=== PATIENT | male | born 1980 | race American Indian/Alaskan Native ===

== ENCOUNTER 2021-07-02 19:45 | Emergency (ER) | payer SELFPAY ==
[2021-07-02 19:54] VITALS: BP 115/71
--- NOTE | 2021-07-02 20:08 | Emergency Department Report ---
- General Chief Complaint: Upper Respiratory Infection Stated Complaint: COVID SYMPTOMS Time Seen by Provider: 07/02/21 19:59 Source: patient Mode of arrival: Ambulatory Limitations: No Limitations - History of Present Illness Initial Comments: Patient is a 40-year-old male presents emergency room with complaints of what he believes to be Covid-like symptoms that began 3 days ago. He has associated fatigue, generalized weakness, chills, sweats, mild dry cough, diarrhea. he reports he has decreased smell and taste. He denies any chest pain, vomiting, shortness of breath, sore throat, ear pain. No past medical history. No allergies to medications. He has not received COVID-19 testing. He has not been vaccinated for COVID-19. ED Review of Systems ROS: Stated complaint: COVID SYMPTOMS Other details as noted in HPI Comment: All other systems reviewed and negative ED Past Medical Hx - Past Medical History Previous Medical History?: No - Surgical History Past Surgical History?: No ED Physical Exam - General Limitations: No Limitations General appearance: alert, in no apparent distress - Head Head exam: Present: atraumatic, normocephalic - Eye Eye exam: Present: normal appearance - ENT ENT exam: Present: mucous membranes moist - Respiratory Respiratory exam: Present: normal lung sounds bilaterally. Absent: respiratory distress, wheezes, rales, rhonchi, stridor, chest wall tenderness, accessory muscle use, decreased breath sounds, prolonged expiratory - Cardiovascular Cardiovascular Exam: Present: regular rate, normal rhythm, normal heart sounds. Absent: systolic murmur, diastolic murmur, rubs, gallop - Neurological Exam Neurological exam: Present: alert, oriented X3 - Psychiatric Psychiatric exam: Present: normal affect, normal mood - Skin Skin exam: Present: warm, dry, intact ED Course Vital Signs 07/02/21 07/02/21 19:51 21:02 Temperature 98.2 F Pulse Rate 75 74 Respiratory 18 14 Rate Blood Pressure 115/71 O2 Sat by Pulse 98 100 Oximetry ED Medical Decision Making - Medical Decision Making Patient is a 40-year-old male presents emergency room with complaints of what he believes to be Covid-like symptoms that began 3 days ago. He has associated fatigue, generalized weakness, chills, sweats, mild dry cough, diarrhea. he reports he has decreased smell and taste. He denies any chest pain, vomiting, shortness of breath, sore throat, ear pain. No past medical history. No allergies to medications. He has not received COVID-19 testing. He has not been vaccinated for COVID-19. Vitals are normal. Breath sounds are clear bilaterally, no wheezing, no rales, no rhonchi. Patient has no fever, no tachycardia, no hypoxia. No clinical signs of bacterial pneumonia or bacterial bronchitis at this time. Discussed supportive care and symptomatic treatment with patient. Discussed return precautions. Discussed the importance of outpatient primary care follow-up. Advised patient May take Mucinex or TheraFlu as needed for cough cold symptoms. May take Tylenol as needed for any pain. Increase your fluid intake. Follow-up with your primary care doctor. Return to emergency room for any new or worsening symptoms. Recommend outpatient COVID-19 testing and if positive will need to self quarantine for 10 days from onset of symptoms. Critical care attestation.: If time is entered above; I have spent that time in minutes in the direct care of this critically ill patient, excluding procedure time. ED Disposition Clinical Impression: Upper respiratory infection Qualifiers: URI type: unspecified URI Qualified Code(s): J06.9 - Acute upper respiratory infection, unspecified Disposition: 01 HOME / SELF CARE / HOMELESS Is pt being admited?: No Does the pt Need Aspirin: No Condition: Stable Instructions: Viral Respiratory Infection Additional Instructions: May take Mucinex or TheraFlu as needed for cough cold symptoms. May take Tylenol as needed for any pain. Increase your fluid intake. Follow-up with your primary care doctor. Return to emergency room for any new or worsening symptoms. Recommend outpatient COVID-19 testing and if positive will need to self quarantine for 10 days from onset of symptoms. Referrals: JAYANT XIAO MD [Staff Physician] - 3-5 Days [facility] [Provider Group] - 3-5 Days Forms: Work/School Release Form(ED) Time of Disposition: 20:07 Print Language: IRISH
== END 2021-07-02 20:29 | disposition home or self-care (01) ==
LOC: ED 19:45
DX: J06.9 Acute upper respiratory infection, unspecified (principal); R68.83 Chills (without fever); R61 Generalized hyperhidrosis; R05.9 Cough, unspecified; R19.7 Diarrhea, unspecified
CPT/HCPCS: 99282